=== PATIENT | male | born 1955 | race Caucasian/White ===

== ENCOUNTER → 2017-09-21 | Outpatient (CLI) | payer OTHER ==
[~2017-09-21] MED LIST: REGADENOSON 0.4 MG/5 ML SYRINGE ONE
[2017-09-21 07:21] LABS: T4 (THYROXINE) 11.2 mcg/dL (4.5-12.1)
[2017-09-21 07:30] LABS: CHOL/HDL RATIO 3.6; LDL/HDL RATIO 1.9 (0.5-3.0); THYROID STIMULATING HORMONE 1.49 mIU/L (0.358-3.740)
== END ==
LOC: RAD 06:49
PROVIDERS: ATTEND Physician Assistant
DX: E78.2 Mixed hyperlipidemia (principal)
CPT/HCPCS: 36415; 78452; 80061; 83036; 84403; 84436; 84443; 84481; 93017; A9502; J2785